=== PATIENT | male | born 1995 | race Two or more races ===

== ENCOUNTER 2020-07-26 01:48 | Emergency (ER) | payer MEDICAID ==
[~2020-07-26] VITALS: Ht 175.3 cm; Wt 99.8 kg
--- NOTE | 2020-07-26 02:06 | NUR ---
PATIENT CAME TO ER BED 9 C/O SOB. PATIENT STATES THAT HE HAS A HISTORY OF ASTHMA. HE USUALLY TAKES HIS RESCUE INHALER THAT IS NONPRESCRIBED. PATIENT STATES THAT IT HAS BEEN 2 YEARS SINCE HE HAS HAD THIS SHORTNESS OF BREATH. PATIENT IS AAOX4. CURRENTLY BREATHING EVENLY AND UNLABORED ON 97% OXYGEN SATURATION ON ROOM AIR. CONNECTED TO THE MONITOR.
--- NOTE | 2020-07-26 02:14 | NUR ---
RT CALLED FOR BREATHING TREATMENT
[2020-07-26] MEDS ORDERED: predniSONE 20 MG TABLET ONE (02:17)
[2020-07-26] MEDS ORDERED: ALBUTEROL FS 2.5 MG/3 ML VIAL.NEB ONE (02:20)
[2020-07-26] MEDS ORDERED: IPRATROPIUM NEB FS 0.5 MG/2.5 ML AMPUL.NEB ONE (02:21)
[2020-07-26] MEDS ORDERED: IPRATROPIUM NEB FS 0.5 MG/2.5 ML AMPUL.NEB NEB ONE (02:30)
[2020-07-26] MEDS ORDERED: ALBUTEROL FS 2.5 MG/3 ML VIAL.NEB NEB ONE (02:30)
[2020-07-26] MEDS ORDERED: predniSONE 20 MG TABLET PO ONE (02:30)
--- NOTE | 2020-07-26 03:02 | NUR ---
Patient discharged to home in stable condition. Written and verbal after care instructions given. Patient verbalizes understanding of instruction.
[2020-07-26 04:33] VITALS: BP 133/74
== END 2020-07-26 03:04 | disposition home or self-care (01) ==
LOC: ER 01:52
DX: J45.909 Unspecified asthma, uncomplicated (principal)
CPT/HCPCS: 71045; 94640; 99285; J7512